=== PATIENT | male | born 1965 ===

== ENCOUNTER 2020-05-20 18:41 | Inpatient (IN) ==
[2020-05-20] MEDS ORDERED: Heparin - STEMI 5,000 UNITS/ML 1 ml VIAL IV ONE (19:11)
[2020-05-20 19:27] LABS: ABS Eosinophils 0.2 10^3/ul (0-0.6); ABS Monocytes 0.8 10^3/ul (0-0.8); ABS Neutrophils 12.2 10^3/ul (1.5-7.7); Eosinophil % 0.9 %; Hematocrit 42 % (42-52); Hemoglobin 14.3 g/dL (14.0-18.0); Lymphocyte % 18.6 %; Mean Corpuscular HGB Conc 34 g/dL (31-36); Mean Corpuscular Hemoglobin 31 pg (27-31); Mean Corpuscular Volume 90 fL (80-94); Mean Platelet Volume 9.1 fL (7.4-10.4); Platelet Count 246 10^3/uL (150-450); Red Blood Count 4.65 10^6 /uL (4.18-5.48); Red Cell Distribution Width 13 % (10-15); White Blood Count 16.2 10^3/uL (3.5-10.8)
[2020-05-20 19:36] LABS: INR 1.03 (0.82-1.09)
[2020-05-20 19:45] LABS: ALT 25 U/L (7-52); AST 26 U/L (13-39); Albumin 4.5 g/dL (3.2-5.2); Albumin/Globulin Ratio 1.4 (1-3); Alkaline Phosphatase 76 U/L (34-104); Anion Gap 9 mmol/L (2-11); BUN/Creatinine Ratio 18.1 (8-20); Blood Urea Nitrogen 21 mg/dL (6-24); CO2 Carbon Dioxide 27 mmol/L (22-32); Calcium 9.2 mg/dL (8.6-10.3); Chloride 100 mmol/L (101-111); Creatine Kinase 383 U/L (10-223); EGFR African American 79.4 (>60); EGFR Non-African American 65.6 (>60); Globulin 3.3 g/dL (2-4); Glucose 143 mg/dL (70-100); LDL Cholesterol Direct 86 mg/dL; Potassium 3.6 mmol/L (3.5-5.0); Sodium 136 mmol/L (135-145); Total Protein 7.8 g/dL (6.4-8.9)
[2020-05-20 19:49] LABS: Myoglobin 67.1 ng/mL (17.4-105.7)
[2020-05-20 19:50] LABS: CKMB ng/mL 6.1 ng/mL (0.6-6.3)
[2020-05-20 19:51] LABS: Troponin I 0.04 ng/mL (<0.03)
[2020-05-21 01:15] LABS: Creatine Kinase 816 U/L (10-223)
[2020-05-21 01:20] LABS: CKMB ng/mL 98.5 ng/mL (0.6-6.3); Troponin I 8.59 ng/mL (<0.03)
[2020-05-21 04:24] LABS: ABS Eosinophils 0.1 10^3/ul (0-0.6); ABS Lymphocytes 2.1 10^3/ul (1.0-4.8); ABS Monocytes 0.7 10^3/ul (0-0.8); ABS Neutrophils 7.5 10^3/ul (1.5-7.7); Eosinophil % 0.7 %; Hematocrit 38 % (42-52); Mean Corpuscular HGB Conc 34 g/dL (31-36); Mean Corpuscular Hemoglobin 30 pg (27-31); Mean Corpuscular Volume 90 fL (80-94); Platelet Count 231 10^3/uL (150-450); Red Blood Count 4.29 10^6 /uL (4.18-5.48); Red Cell Distribution Width 14 % (10-15); White Blood Count 10.4 10^3/uL (3.5-10.8)
[2020-05-21 04:41] LABS: ALT 26 U/L (7-52); AST 70 U/L (13-39); Albumin 3.8 g/dL (3.2-5.2); Albumin/Globulin Ratio 1.4 (1-3); Alkaline Phosphatase 65 U/L (34-104); Anion Gap 6 mmol/L (2-11); BUN/Creatinine Ratio 16.5 (8-20); Blood Urea Nitrogen 14 mg/dL (6-24); CO2 Carbon Dioxide 27 mmol/L (22-32); Calcium 8.6 mg/dL (8.6-10.3); Chloride 105 mmol/L (101-111); Cholesterol 138 mg/dL; Creatine Kinase 1068 U/L (10-223); EGFR African American 113.7 (>60); EGFR Non-African American 93.9 (>60); Globulin 2.7 g/dL (2-4); Glucose 91 mg/dL (70-100); LDL Cholesterol 75 mg/dL; Magnesium 1.9 mg/dL (1.9-2.7); Potassium 3.6 mmol/L (3.5-5.0); Sodium 138 mmol/L (135-145); Total Protein 6.5 g/dL (6.4-8.9); Triglycerides 98 mg/dL
[2020-05-21 04:46] LABS: CKMB ng/mL 120.7 ng/mL (0.6-6.3)
[2020-05-21 04:48] LABS: Troponin I 15.95 ng/mL (<0.03)
[2020-05-21 07:07] LABS: Creatine Kinase 1164 U/L (10-223)
[2020-05-21 07:13] LABS: CKMB ng/mL 125.3 ng/mL (0.6-6.3)
[2020-05-21] MEDS ORDERED: Potassium Chlor 20 meq TAB.ER PO ONE (08:32)
[2020-05-21 08:33] LABS: Troponin I 18.76 ng/mL (<0.03)
[2020-05-21] MEDS: Aspirin EC 81 mg TAB.EC (enteric coated) PO SCH (08:49)
[2020-05-22 04:53] LABS: ALT 32 U/L (7-52); AST 77 U/L (13-39); Albumin 3.8 g/dL (3.2-5.2); Albumin/Globulin Ratio 1.2 (1-3); Alkaline Phosphatase 69 U/L (34-104); Anion Gap 6 mmol/L (2-11); BUN/Creatinine Ratio 11.8 (8-20); Blood Urea Nitrogen 11 mg/dL (6-24); CO2 Carbon Dioxide 27 mmol/L (22-32); Chloride 104 mmol/L (101-111); EGFR African American 102.1 (>60); EGFR Non-African American 84.4 (>60); Globulin 3.3 g/dL (2-4); Glucose 110 mg/dL (70-100); Potassium 3.7 mmol/L (3.5-5.0); Sodium 137 mmol/L (135-145); Total Protein 7.1 g/dL (6.4-8.9)
[2020-05-22] MEDS: Aspirin EC 81 mg TAB.EC (enteric coated) PO SCH (08:09)
[2020-05-22 09:25] LABS: Troponin I 10.38 ng/mL (<0.03)
[2020-05-22] MEDS ORDERED: Potassium Chlor 20 meq TAB.ER PO ONE (10:07)
[2020-05-23] MEDS: Aspirin EC 81 mg TAB.EC (enteric coated) PO SCH (08:59)
[2020-05-23] MEDS: Amiodarone 400 mg TAB PO SCH ×2 (10:11→14:35)
[2020-05-23 10:13] LABS: BUN/Creatinine Ratio 11.6 (8-20); EGFR African American 82.4 (>60); EGFR Non-African American 68.1 (>60); Potassium 3.7 mmol/L (3.5-5.0)
[2020-05-23] MEDS ORDERED: Potassium Chlor 20 meq TAB.ER PO ONE (10:21)
[2020-05-23 10:28] LABS: TSH Ultra Thyroid Stim Horm 2.56 mcIU/mL (0.34-5.60)
[2020-05-23 10:30] LABS: Free T4 0.88 ng/dL (0.61-1.12)
[2020-05-23 12:11] VITALS: BP 116/70
[2020-05-23 12:22] LABS: Free T3 2.8 pg/mL (2.5-3.9)
== END 2020-05-23 15:00 | disposition home or self-care (01) | DRG 174 ==
LOC: ED 18:41 → CHICATH 19:21 → ICU 21:00 → MEDTELE 05-22 12:15
PROVIDERS: ADMIT Internal Medicine Cardiovascular Disease; ATTEND Internal Medicine Cardiovascular Disease